=== PATIENT | male | born 1925 | race Caucasian/White ===

== ENCOUNTER 2016-10-25 05:22 | Emergency (ER) | payer MEDICARE ==
[2016-10-25] MEDS ORDERED: ONDANSETRON ODT 4 MG TAB.RAPDIS ONE (05:39)
[2016-10-25] MEDS ORDERED: FENTANYL 250 MCG/5 ML VIAL ONE (05:40)
[2016-10-25] MEDS ORDERED: LIDOCAINE HCL 2% 20 ML VIAL ONE (05:54)
--- NOTE | 2016-10-25 06:17 | CT REPORT ---
HISTORY: Trauma, fall COMPARISON: None. TECHNIQUE: Axial non-contrast images obtained from skull vertex through foramen magnum. Dose reduction technique was utilized. FINDINGS: There is global brain atrophy compatible with age. There is no hemorrhage. There is no hydrocephalus . No mass lesion is identified. Wolff white differentiation adequate, there is no infarction. No mi dline shift is identified. The paranasal sinuses are clear. Skin iván are present in the left fro ntal scalp. IMPRESSION: No acute intracranial abnormality. Results discussed with Dr. Issa at 6:14 AM 10/25/2016. Final Electronic Signature: This report was electronically signed by Alejandro Rosa MD on 10/25/2016 6 :15 AM. [email or web address] /
--- NOTE | 2016-10-25 07:43 | ER PHYSICIAN DOCUMENTATION ---
Physician Documentation [facility] Name:Lauri Gamboa Age:89 yrs Sex:Male :1925 Arrival Date:10/25/2016 Time:05:22 BedTrauma-B Private MD:Rober Allen ED, John Disposition: 10/25/16 05:51 Discharged to Home/Self Care. Impression: Head Contusion, Unspecified Part of Head, Head Laceration. - Condition is Good. - Discharge Instructions: LACERATION, Scalp, Abrasion - SKIN AVULSION. - Medical Reconciliation form form. - Follow up: Emergency Department; When: 7 days; Reason: Staple/Suture removal. - Problem is new. - Symptoms have improved. HPI: 10/25 05:30 This 89 yrs old Male presents to ER via EMS with complaints of Fall Injury. 05:30 Details of fall: The patient fell from seated position, off the edge of a bed. Onset: jm The symptom(s)/episode began/occurred just prior to arrival. Associated injuries: The patient sustained injury to the head. Associated signs and symptoms: Loss of consciousness: the patient experienced no loss of consciousness. Severity of symptoms: in the emergency department the symptoms are unchanged. The patient has not experienced similar symptoms in the past. Pt rolled out of bed and hit his head, L shoulder and hand on the way down. He has a large lac on the head and some skin tears on the L shoulder and hand. NO LOC or SMITH. Pt has dementia. . Historical: - Allergies: NSAIDS; Sulfa (Sulfonamide Antibiotics); Viagra; Cialis; Codeine; Vicodin; - Home Meds: 1. Coumadin Oral 2. oxygen at night 3. unable to obtain 4. Lasix Oral 5. Coreg Oral 6. levothyroxine oral 7. Acyclovir Oral 8. gabapentin oral - PMHx: aortic valve disorder; DEPRESSION; THYROID PROBLEM; CAD; v-tach; chronic kidney disease; HYPERTENSION; CHF; skin cancer; DVT 2003; hyperlipidemia; fecal and urinary incontenence; THYROID PROBLEM; OSTEOARTHRITIS; lumbar pain; Abdominal Cramps (November 25, 2014); Dehydration (November 25, 2014); - PSHx: UNABLE TO OBTAIN; - Tetanus: will f/u with PCP < 10 years. - Ebola Screening: : Patient negative for fever greater than or equal to 101.5 degrees Fahrenheit, and additional compatible Ebola Virus Disease symptoms. Patient denies exposure to infectious person. Patient denies travel to an Ebola-affected area in the 21 days before illness onset. . - Social history: Smoking status: Patient states former smoker of tobacco. - Immunization history: Unable to Obtain. ROS: 05:30 Constitutional: Negative for fatigue, fever. 05:30 Eyes: Negative for blurry vision. 05:30 Neck: Negative for injury or acute deformity. 05:30 MS/extremity: Positive for abrasion. 05:30 Skin: Positive for abrasion(s), avulsion. 05:30 Skin: Positive for laceration(s). Exam: 05:30 Constitutional: The patient appears alert, awake, comfortable. 05:30 Head/face: Noted is a laceration(s), that is linear, 5 cm(s), of the left frontal area and left side of the back of head. 05:30 Head/face: Basilar skull fracture findings: the patient does not have obvious signs of a basilar skull fracture. 05:30 Eyes: Periorbital structures: appear normal, Pupils: equal, round, and reactive to light and accomodation, Extraocular movements: intact throughout. 05:30 Cardiovascular: Rate: normal, Rhythm: regular. 05:30 Skin: injury, avulsion(s), a very small 1 cm(s), of the left scapular area and left hand. 05:30 Neuro: Mentation: is normal, Gait: is steady. 05:30 Neck: C-spine: appears grossly normal, ROM/movement: is normal. 05:30 Abdomen/GI: Bowel sounds: normal, Palpation: abdomen is soft and non-tender. 05:30 Back: CVA tenderness, is absent, vertebral tenderness, is not appreciated. 05:30 Musculoskeletal/extremity: ROM: intact in all extremities, Weight bearing: able to fully bear weight. 05:30 Psych: Behavior/mood is pleasant, cooperative, Affect is calm. Vital Signs: 05:32 BP 127 / 65; Pulse 94; Resp 17; Temp 98.0(TE); Pulse Ox 97% 2 lpm ; Weight 68.04 kg; rh Pain 3/10; 06:40 BP 115 / 78; Pulse 61; Resp 16; Pulse Ox 96% on 2 lpm NC; rh 07:40 Pulse 94; Resp 16; Pulse Ox 92% on 2 lpm NC; lp 07:42 Pulse 94; Resp 16; Pulse Ox 92% on 2 lpm NC; lp Trauma Score (Adult): 05:30 Eye Response: spontaneous(1); Verbal Response: oriented(1); Motor Response: obeys rh commands(2); Systolic BP: > 89 mm Hg(4); Respiratory Rate: 10 to 29 per min(4); Jachin Score: 15; Trauma Score: 12 06:30 Eye Response: spontaneous(1); Verbal Response: oriented(1); Motor Response: obeys rh commands(2); Systolic BP: > 89 mm Hg(4); Respiratory Rate: 10 to 29 per min(4); Mode Score: 15; Trauma Score: 12 Laceration: 05:30 Wound Repair of 5cm ( 2.0in ) subcutaneous laceration to left side of the back of head. jm one 5cm wound and one 1cm wound on the top of head. . Distal neuro/vascular/tendon intact. Anesthesia: Wound infiltrated with 5 mls of 1% lidocaine. Wound prep: Wound irrigation by cinetechnician by nurse. Skin closed with 12 thin layer Jasbir using Interrupted sutures. Dressed with Open to air. Patient tolerated well. MDM: 05:30 Differential diagnosis: abrasion, contusion, laceration. Data reviewed: vital signs, nurses notes, radiologic studies, and as a result, I will discharge patient. Counseling: I had a detailed discussion with the patient and/or guardian regarding: the historical points, exam findings, and any diagnostic results supporting the discharge/admit diagnosis, radiology results, the need for outpatient follow up, with the patient's primary care provider. ED course: No ICH noted. Pt sewed up and DC'd home. . 05:40 Patient medically screened. 10/25 06:19 Order name: CAT SCAN; HEAD W/O CON [id number] [id number] 10/25 05:38 Order name: Iv Saline Lock; Complete Time: 05:38 10/25 05:40 Order name: Wound Care; Complete Time: 05:41 Dispensed Medications: 05:45 Drug: Lidocaine (2 %) 10 ml; {Note: ADMINISTERED TO AFFECTED AREA BY DR LADD .} Route: rh Infiltration; 06:41 Follow up: Response: No adverse reaction rh Signatures: Emma Nieves RN RN lp Meyer, John, MD MD jm Hofsess, Rachel
--- NOTE | 2016-10-25 07:43 | ER NURSING DOCUMENTATION ---
Nurse's Notes [facility] Name:Lauri Gamboa Age:89 yrs Sex:Male :1925 Arrival Date:10/25/2016 Time:05:22 BedTrauma-B Private MD:Rober Allen Diagnosis:Head Contusion, Unspecified Part of Head;Head Laceration Presentation: 10/25 05:28 Presenting complaint: EMS states: Pt fell out of bed and hit his head on the nightstand, pt has head laceration and skin tear to the left hand. Pt is alert, oriented and c/o headache. Pt is on blood thinners. Care prior to arrival: IV initiated. gauge and site 20 G R AC Oxygen administered. Mechanism of Injury: Fall. Trauma event details: Injury occurred in the [facility] Injury occurred at home. Injury occurred October 25, 2016. 05:28 Acuity: ANNEMARIE 2 05:28 Method Of Arrival: EMS: 410 07:05 Transition of care: Home. Triage Assessment: 05:38 General: Appears in no apparent distress. Neuro: Level of Consciousness is awake, rh alert, obeys commands, Oriented to person, place, time. Historical: - Allergies: NSAIDS; Sulfa (Sulfonamide Antibiotics); Viagra; Cialis; Codeine; Vicodin; - Home Meds: 1. Coumadin Oral 2. oxygen at night 3. unable to obtain 4. Lasix Oral 5. Coreg Oral 6. levothyroxine oral 7. Acyclovir Oral 8. gabapentin oral - PMHx: aortic valve disorder; DEPRESSION; THYROID PROBLEM; CAD; v-tach; chronic kidney disease; HYPERTENSION; CHF; skin cancer; DVT 2003; hyperlipidemia; fecal and urinary incontenence; THYROID PROBLEM; OSTEOARTHRITIS; lumbar pain; Abdominal Cramps (November 25, 2014); Dehydration (November 25, 2014); - PSHx: UNABLE TO OBTAIN; - Tetanus: will f/u with PCP < 10 years. - Ebola Screening: : Patient negative for fever greater than or equal to 101.5 degrees Fahrenheit, and additional compatible Ebola Virus Disease symptoms. Patient denies exposure to infectious person. Patient denies travel to an Ebola-affected area in the 21 days before illness onset. . - Social history: Smoking status: Patient states former smoker of tobacco. - Immunization history: Unable to Obtain. Screenin:34 Abuse screen: Denies threats or abuse. Denies injuries from another. Nutritional rh screening: No deficits noted. Tuberculosis screening: No symptoms or risk factors identified. 07:42 Infectious Disease Risk None. lp Primary Survey: 05:32 Breathing/Chest: Respiratory pattern: regular. Circulation: Pulses: palpable right rh radial artery and left radial artery. Assessment: 05:30 General: Appears in no apparent distress, Behavior is cooperative. Pain: Complains of rh pain in top of head. Neuro: Level of Consciousness is awake, alert, obeys commands, Oriented to person, place, time, event, Inventory Coordinator are equal bilaterally Speech is normal, Facial symmetry appears normal. EENT: Oral mucosa is dry. Cardiovascular: Capillary refill < 3 seconds Chest pain is denied. Respiratory: Airway is patent Respiratory effort is even, unlabored, Denies shortness of breath. GI: Denies nausea. : No deficits noted. Derm: Skin is fragile, has skin tears on Left hand and left shoulder blade. Musculoskeletal: Circulation, motion, and sensation intact Range of motion intact in all extremities. Injury Description: Skin tear. 06:40 Reassessment: Called pt's and let her know he is ready to be picked up. . rh Vital Signs: 05:32 BP 127 / 65; Pulse 94; Resp 17; Temp 98.0(TE); Pulse Ox 97% 2 lpm ; Weight 68.04 kg; rh Pain 3/10; 06:40 BP 115 / 78; Pulse 61; Resp 16; Pulse Ox 96% on 2 lpm NC; rh 07:40 Pulse 94; Resp 16; Pulse Ox 92% on 2 lpm NC; lp 07:42 Pulse 94; Resp 16; Pulse Ox 92% on 2 lpm NC; lp Trauma Score (Adult): 05:30 Eye Response: spontaneous(1); Verbal Response: oriented(1); Motor Response: obeys rh commands(2); Systolic BP: > 89 mm Hg(4); Respiratory Rate: 10 to 29 per min(4); [place] Score: 15; Trauma Score: 12 06:30 Eye Response: spontaneous(1); Verbal Response: oriented(1); Motor Response: obeys rh commands(2); Systolic BP: > 89 mm Hg(4); Respiratory Rate: 10 to 29 per min(4); Mode Score: 15; Trauma Score: 12 ED Course: 05:23 Patient arrived in ED. em2 05:23 Rober Allen MD is Private Physician. em2 05:28 Mili Ahmadi is Primary Nurse. rh 05:30 Triage completed. rh 05:34 Valuables Remains with patient Patient has correct armband on for positive rh identification. Placed in gown. Bed in low position. Call light in reach. Side rails up X 1. 05:35 Maintain field IV. Dressing intact. Site clean & dry. Gauge & site: 20 G R AC. rh 05:40 Janes Issa MD is Attending Physician. 05:41 Wound care to skin tear located on left scapular area and dorsum of left hand and top rh of head was cleaned with soap and water, Patient tolerated well. 05:[address] ca 06:10 [address] back from [address]. ca 07:05 Report given to EMMA KEARNEY. rh 07:42 Valuables Given to family. lp Administered Medications: 05:45 Drug: Lidocaine (2 %) 10 ml; {Note: ADMINISTERED TO AFFECTED AREA BY DR ISSA .} Route: rh Infiltration; 06:41 Follow up: Response: No adverse reaction rh Outcome: 05:51 Discharge ordered by . 07:41 Discharged to home ambulatory. lp 07:41 Condition: stable 07:41 Instructed on discharge instructions, follow up and referral plans. wound care. 07:42 Patient left the ED. lp 10/26 10:22 Discharge F/U Call: Unable to reach: no answer lp Signatures: Emma Nieves RN RN Janes Villarreal MD MD jm Meinking-reg, Rachel em2 Maico Kohli Rachel
== END 2016-10-25 07:42 | disposition home or self-care (01) ==
LOC: ER 05:22
DX: S00.03XA Contusion of scalp, initial encounter (principal); S01.01XA Laceration without foreign body of scalp, initial encounter; S61.412A Laceration without foreign body of left hand, initial encounter; S41.012A Laceration without foreign body of left shoulder, initial encounter; W06.XXXA Fall from bed, initial encounter; Y92.013 Bedroom of single-family (private) house as the place of occurrence of the external cause; Z79.01 Long term (current) use of anticoagulants; I10 Essential (primary) hypertension; I35.9 Nonrheumatic aortic valve disorder, unspecified; Z86.718 Personal history of other venous thrombosis and embolism; Z79.899 Other long term (current) drug therapy; Z74.3 Need for continuous supervision
CPT/HCPCS: 12032; 70450; 99284; A0425; A0427

== ENCOUNTER 2016-11-01 10:05 | Emergency (ER) | payer MEDICARE ==
--- NOTE | 2016-11-01 13:04 | ER NURSING DOCUMENTATION ---
Nurse's Notes [facility] Name:Lauri Gamboa Age:89 yrs Sex:Male :1925 Arrival Date:11/01/2016 Time:10:05 Bed1 Private MD:Rober Allen Diagnosis:Staple Removal Presentation: 11/01 10:13 Presenting complaint: Patient states: Here for suture removal to scalp. Transition of ma care: Home. 10:13 Method Of Arrival: Private Vehicle ma 10:13 Acuity: ANNEMARIE 5 ma Triage Assessment: 10:14 General: Appears in no apparent distress, Behavior is cooperative. Pain: Denies pain. ma Historical: - Allergies: NSAIDS; Sulfa (Sulfonamide Antibiotics); Viagra; Cialis; Codeine; Vicodin; - Home Meds: 1. Coumadin Oral - Tetanus: unknown. - Ebola Screening: : No symptoms or risks identified at this time. . - Social history: Smoking status: unknown if patient ever smoked tobacco. Screenin:15 Infectious Disease Risk None. Abuse screen: Denies threats or abuse. Nutritional ma screening: No deficits noted. Vital Signs: 10:14 Temp 98.7; ma ED Course: 10:07 Patient arrived in ED. ds 10:07 Rober Allen MD is Private Physician. ds 10:13 Tessa Peterson, RN is Primary Nurse. ma 10:14 Triage completed. ma 10:15 Removed iván from left frontal area Blunt site is well healed Patient tolerated ma poorly. Wound care. Administered Medications: No medications were administered Outcome: 10:15 Discharged to home ma 10:15 Condition: stable 10:15 Instructed on discharge instructions, follow up and referral plans. 10:15 No charge visit due to Staple Removal 10:21 Discharge ordered by . ma 10:22 Patient left the ED. ma Signatures: Tessa Peterson, RN RN kiara Cabralot, Heather, Reg Reg ds
== END 2016-11-01 13:03 | disposition home or self-care (01) ==
LOC: ER 10:05
DX: Z48.02 Encounter for removal of sutures (principal); S01.01XD Laceration without foreign body of scalp, subsequent encounter